=== PATIENT | male | born 2000 | race Two or more races ===

== ENCOUNTER 2020-03-21 21:45 | Emergency (ER) | payer OTHER ==
[~2020-03-21] VITALS: Ht 185.4 cm; Wt 70.0 kg
[2020-03-21 21:46] VITALS: BP 136/78
--- NOTE | 2020-03-21 22:03 | NUR ---
PLEASANT YOUNG MAN, CONTINUES TO DENY HI/SI, CALLING FOR RIDE, AMBULATE OUT WITH STEADY GAIT NAD.
== END 2020-03-21 22:06 | disposition home or self-care (01) ==
LOC: ED 22:00
DX: F98.9 Unspecified behavioral and emotional disorders with onset usually occurring in childhood and adolescence (principal); Z00.00 Encounter for general adult medical examination without abnormal findings
CPT/HCPCS: 99283